=== PATIENT | male | born 1950 | race Caucasian/White ===

== ENCOUNTER → 2018-12-07 | Day surgery (SDC) | payer MEDICARE ==
--- NOTE | 2018-12-02 12:25 | NUR ---
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 Patient awake,alert,and orientedx3. Respirations even and unlabored on room air. Reviewed patient's medical history and reviewed left heart catheterization procedure. Patient stated he did not have any questions at this time. Patient did not have list of home medications and did not have a list. Patient instructed and provided handout regarding preop instructions. Patient was provided copy of handout for preop instructions and instructions to use chlorhexidine gluconate soap.
--- NOTE | 2018-12-02 13:15 | NUR ---
At approximately 1250 Patient was signing consent paperwork for procedure. Patient paused and stated he was having trouble signing his name and he did not know what happened. At approximately 1252 Patient placed his reading glasses on and was able to sign his name and initial where appropriate without difficulty for the rest of his consent paperwork. At approximately 1255 modified NIH stroke scale performed and no deficits noted. Patient appears to be in no signs or symptoms of acute distress at this time. At 1256 Patient stated "I feel fine and like nothing is wrong." Notified Dr. Murrell at approximately 1300 of situation and no deficits noted after performing modified NIH stroke scale. had no new orders at this time. Instructed patient on signs and symptoms of stroke and if any signs or symptoms occur to call 911. Patient verbalized understanding and had no further questions at this time.
[2018-12-02 13:26] LABS: BASOPHILS # (AUTO) 0.1 (0.0-0.1); BASOPHILS % 0.6 % (0.0-1.0); EOSINOPHILS # (AUTO) 0.2 (0.0-0.4); EOSINOPHILS % 2.6 % (0.0-6.0); HEMATOCRIT 40.7 % (38.2-49.6); HEMOGLOBIN 13.8 g/dL (14.0-18.0); LYMPHOCYTES # (AUTO) 1.5 (1.0-3.2); LYMPHOCYTES % 16.7 % (18.0-39.1); MEAN CORPUSCULAR HEMOGLOBIN 30.9 pg (28-32); MEAN CORPUSCULAR HGB CONC 33.9 g/dL (31-35); MEAN CORPUSCULAR VOLUME 91.3 fL (81-99); MONOCYTES # (AUTO) 0.5 (0.2-0.8); NEUTROPHILS # (AUTO) 6.6 (2.1-6.9); NEUTROPHILS % 73.8 % (38.7-80.0); PLATELET COUNT 237 x10e3/uL (140-360); RED BLOOD COUNT 4.46 x10e6/uL (4.3-5.7)
[2018-12-02 13:44] LABS: ALBUMIN 3.8 g/dL (3.5-5.0); ALBUMIN/GLOBULIN RATIO 1.3 (0.8-2.0); ANION GAP 10.1 mmol/L (8-16); CREATININE, SERUM 1.54 mg/dL (0.72-1.25); POTASSIUM 4.1 mmol/L (3.5-5.1)
--- NOTE | 2018-12-02 17:57 | NUR ---
Attempted to contact patient in regards to low blood glucose 36. left message.
--- NOTE | 2018-12-02 18:05 | NUR ---
Notified Director Yamile Smith of attempt to call patient and left message in regards to low blood glucose 36. Director Yamile Smith stated she will text to notify Dr. Murrell of low blood glucose 36 and message left with patient.
[2018-12-07] VITALS (16 sets, daily range): BP systolic 111–153; BP diastolic 60–77
[~2018-12-07] VITALS: Ht 180.3 cm; Wt 99.8 kg
[~2018-12-07] MED LIST: AMLODIPINE BESYL5 MG PO; ASPIRIN 325 MG TAB ONE; ATORVASTATIN CA10 MG PO; BIVALRIUDIN 250 MG/VIAL VIAL IV ONE; DOXAZOSIN MESYLA2 MG PO; FENOFIBRIC ACI105 MG; FENTANYL CITRATE/PF 100MCG/2 ML INJ ONE; GLIPIZIDE5 MG PO; HEPARIN SOD/SOD CHLORIDE 2,000 ML ONE; IOPAMIDOL 370 MG/ML 200 ML INFUS..BTL INJ ONE; ISOSORBIDE MONO20 MG PO; LEVEMIR100 UNIT/1; LIDOCAINE HCL 2% LOCAL 20 ML VIAL ONE; MIDAZOLAM HCL 2 MG/2 ML VIAL ONE; PLAVIX75 MG PO; SODIUM CHLORIDE 0.9% 1000ML 1,000 ML ONE; SODIUM CHLORIDE 0.9% 50ML 50 ML ONE; TICAGRELOR 90 MG TABLET ONE; TRAMADOL HCL100 MG; VERAPAMIL HCL 2.5 MG/ML 2 ML VIAL ONE
--- NOTE | 2018-12-07 12:32 | NUR ---
Notified Dr. Murrell of patient blood sugar on 12/02/18 36 and blood sugar checked today is 52. Dr. Murrell stated ok to give him a little bit of orange juice.
--- NOTE | 2018-12-07 14:30 | NUR ---
1430 Received handoff from Namita RN Pt had [facility] with LCX stent and PCI via right TR band approach. Back to bseline orientation Resp regular 98% Room air Left hand iv infusion completed and remainder iv infusion NS at 100cchr No s/s infiltration.Abdomen soft and non tender denies necessity to defecate or urinate. Bilateral femoral pulses present No gross issues pain pallor pressure or dysrhythmia. Pt states has no family or friends for transport home and medical transport ambulance patient choice letter complete. Pt aware of pOC and importance of dc instructions. Has copies of paper. morales/giovany
--- NOTE | 2018-12-07 15:00 | NUR ---
1500pm Refuses recheck in sugar.Fed sandwich tray tolerated well. 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 Tr band air release @1600. Neuro vascular function intact.No oozing noted at site or hematoma.No gross issues pain pallor pressure or dysrhythmia. ds/rn
--- NOTE | 2018-12-07 16:30 | NUR ---
1630 TR band air release completed No gross issues with pain pallor pressure or dysrhythmia.2x2 dressing with Coban dressing and arm splint Intact neuro vascular function to rt arm. Call [facility] service pt coordinated pickup. NO issues with pain pressure pallor or dysrhythmia. Ambulated to bathroom tolerated well. Back to full baseline orientation and and to tolerated po intake.Awaiting transport to home Pt with stable vs and in sinus benita.Denies CO CP or SOB, ds/rn
--- NOTE | 2018-12-07 17:22 | NUR ---
1722 Call [facility] on way ETA 15mins Pt stable sitting in chair NO distress Rt TR band site w/o oozing or bleeding Adequate neuro vascular function. Denies c/o No gross issues with pain pallor pressure or dysrhythmia. ds/rn
--- NOTE | 2018-12-07 18:35 | NUR ---
1835pm Pt stable iv is removed and Coban dressing intact . No signs infiltration.Rt Tr band site w/o bleeding ,splint intact. Maintain neuro vascular intact.Pt escorted to waiting area awaiting medical transport home. 1745pm 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 Pt ready to call private transport. 1825pm Medical Transfer service cancelled per pt request. Kim Breaux Notified of pt issue and will Notify Dr. Murrell of pt choice to go home via non medical transport. Pt call [employer] service. Arrival time 1835pm. Assist to car with set belts applied with no active c/o or distress all dressings intact and stable w/o bleeding and right hand remain with intact neurovascular function No CP or SOB. morales/rn
--- NOTE | 2018-12-07 21:15 | Operative Report ---
DATE OF PROCEDURE: 12/07/2018 SURGEON: Jose Murrell MD INDICATIONS: Coronary artery disease, abnormal stress test. PROCEDURES PERFORMED: 1. Left heart catheterization, selective coronary angiography. 2. Percutaneous transluminal coronary angioplasty and stent placement of the mid circumflex coronary artery. 3. Deployment of right wrist TR band. COMPLICATIONS: None. RECOMMENDATIONS: Medical therapy. DESCRIPTION OF PROCEDURE: Access obtained in the right radial artery. A 5-Sudanese sheath was placed. Diagnostic coronary angiogram revealed heavily calcified vessels with diffuse 20% stenosis in the previously placed anterior descending artery stent, circumflex mid 80% stenosis, right femoral artery diffuse 30% to 50% stenosis. A decision was made to intervene on the circumflex artery. The patient received intravenous Angiomax or Brilinta and aspirin for anticoagulation. The left main cannulated using EBU 3.75 5-Sudanese guiding catheter. A short wire was advanced across the lesion for support. Predilatation with a 3 mm balloon following which a single 3.0 x 20 mm Synergy drug-eluting stent was deployed at 14 atmospheres. Excellent end result less than 10% residual stenosis, SUSANNA-3 flow. No complications. Right wrist wire and guide were removed. TR band was applied. The patient was discharged home same day. Jose Murrell MD [facility]/MOD[facility] /[id number]
== END | disposition home or self-care (01) ==
LOC: CATH LAB 11:10
PROVIDERS: ATTEND Internal Medicine Interventional Cardiology
DX: I25.110 Atherosclerotic heart disease of native coronary artery with unstable angina pectoris (principal); I25.84 Coronary atherosclerosis due to calcified coronary lesion; Z95.5 Presence of coronary angioplasty implant and graft; Z79.02 Long term (current) use of antithrombotics/antiplatelets; R94.39 Abnormal result of other cardiovascular function study; I10 Essential (primary) hypertension; I05.9 Rheumatic mitral valve disease, unspecified; E10.9 Type 1 diabetes mellitus without complications; Z79.4 Long term (current) use of insulin; Z79.84 Long term (current) use of oral hypoglycemic drugs
CPT/HCPCS: 93454; C9600; 36415; 80053; 82948; 85025; 92928; C1725; C1769; C1874; C1887; J0583; J2001; J2250; J7030; Q9967